=== PATIENT | female | born 1995 | race African-American/Black ===

== ENCOUNTER 2018-01-12 22:38 | Emergency (ER) | payer MEDICAID, SELFPAY ==
[2018-01-12] MEDS ORDERED: Sodium Chloride 0.9% 1,000 ML ONE (23:07)
[2018-01-12 23:31] LABS: Bilirubin Small (Negative); Blood, Urine Moderate (Negative); Glucose, Urine (Dipstick) Negative (Negative); Leukocyte Negative (Negative); Nitrite Negative (Negative); Protein, Urine (Dipstick) 30 mg/dL (Neg-Trace)
[2018-01-12 23:32] LABS: #Basophils 0.1 thou/uL (0.0-0.2); #Monocytes 0.8 thou/uL (0.11-0.59); #Neutrophils 6.5 thou/uL (1.40-6.50); %Basophils 0.9 % (0.0-1.0); %Eosinophils 0.2 % (0.0-10.0); %Lymphocytes 21.5 % (21.0-51.0); %Monocytes 8.3 % (0.0-10.0); %Neutrophils 69.1 % (42.0-75.0); Hemoglobin 13.2 g/dL (12.0-16.0); Mean Corpuscular HGB CONC 33.2 g/dL (32.0-36.0); Mean Corpuscular Hemoglobin 28.8 pg (27.0-31.0); Mean Corpuscular Volume 86.9 fl (81.0-99.0); Mean Platelet Volume 7.2 fL (7.4-10.4); Platelet Count 298 thou/uL (130-400); RBC Distribution Width 12.3 % (11.5-14.5); Red Blood Cell (RBC) Count 4.57 mill/uL (4.20-5.40); White Blood Cell (WBC) Count 9.5 thou/uL (4.8-10.8)
[2018-01-12 23:35] LABS: Clarity Hazy (Clear); Specific Gravity, Urine 1.035 (1.002-1.036)
[2018-01-12 23:36] LABS: Squamous Epithelial 0-3 HPF (0-3); Transitional Epithelial 0-3 HPF (0-3); WBC/HPF 0-3 HPF (0-3)
[2018-01-12 23:44] LABS: Anion Gap 14 mmol/L (10-20); BUN (Urea Nitrogen) 6 mg/dL (7.0-18.7); Calc. Creatinine Clearance 0 mL/min (70-130); Calcium 9.1 mg/dL (7.8-10.44); Carbon Dioxide 22 mmol/L (22-29); Chloride 104 mmol/L (98-107); Estimated GFR-MDRD Greater than 90; Glucose 91 mg/dL (70-105); Potassium 3.7 mmol/L (3.5-5.1); Sodium 136 mmol/L (136-145)
== END 2018-01-13 00:28 | disposition short-term general hospital (02) ==
LOC: NAV ERS 22:38
DX: O20.9 Hemorrhage in early pregnancy, unspecified (principal); Z87.891 Personal history of nicotine dependence; Z79.899 Other long term (current) drug therapy; Z3A.01 Less than 8 weeks gestation of pregnancy
CPT/HCPCS: 51701; 80048; 81003; 81015; 84702; 85025; 96360; A4353; J7050

== ENCOUNTER 2018-01-14 12:36 | Emergency (ER) | payer SELFPAY ==
[2018-01-14] MEDS ORDERED: Sodium Chloride 0.9% 1,000 ML ONE (12:52)
[2018-01-14] MEDS ORDERED: Promethazine HCl 25 MG/ML VIAL ONE (12:54)
== END 2018-01-14 14:05 | disposition home or self-care (01) ==
LOC: NAV ERS 12:36
DX: O21.9 Vomiting of pregnancy, unspecified (principal); Z87.891 Personal history of nicotine dependence; Z3A.01 Less than 8 weeks gestation of pregnancy
CPT/HCPCS: 96365; J2550; J7050

== ENCOUNTER 2018-04-23 13:08 | Outpatient (CLI) | payer OTHER ==
--- NOTE | 2018-04-23 15:46 | ULT ---
OB ULTRASOUND: 04/23/18 HISTORY: Positive . Evaluate size and dates. FINDINGS: There is a single intrauterine gestation in breech presentation. Cardiac doppler demonstrates h eart tones with a heart rate of 146 beats per minute. The placenta is located anteriorly withou t evidence of placenta previa. Subjectively, there is a normal amount of amniotic fluid. Amniotic flu id index is calculated at 11.09 cm, which is within normal limits. measurements: Biparietal diameter 4.94 cm 21 weeks Head circumference 18.88 cm 21 weeks, 1 day Abdominal circumference 14.69 cm 20 weeks Femur length 3.42 cm 20 weeks, 5 days The estimated gestational age by ultrasound is 20 weeks and 4 days with an JOLLY on 09/06/18. Gestationa l age by the last menstrual period of 21 weeks. The estimated weight by ultrasound was 352.56 grams (12 oz.). This represents 18.5 percentile f or weight. Four chambered heart is difficult to delineate, but there is suggestion of a four chambered heart. Th e visualized portions of the cerebellum, visualized portions of the spine, stomach, bilateral k idneys, urinary bladder, and three vessel cord demonstrate a normal sonographic appearance. Cord inse rtion is not well seen but does appear grossly within normal limits. Limited evaluation of the cord i nsertion is secondary to positioning. No definite anomalies are seen. IMPRESSION: 1. Single intrauterine gestation in breech presentation with heart tones documented. 2. Estimated gestational age by ultrasound is 20 weeks and 4 days with an JOLLY on 09/06/18. 3. Estimated weight by ultrasound is 353.56 grams (12 oz.). POS: [facility]
== END 2018-04-23 13:09 | disposition home or self-care (01) ==
LOC: NAV ULT 13:08
PROVIDERS: ATTEND Family Medicine
DX: O09.892 Supervision of other high risk pregnancies, second trimester (principal); Z3A.20 20 weeks gestation of pregnancy
CPT/HCPCS: 76805

== ENCOUNTER 2018-06-17 09:28 | Outpatient (CLI) | payer OTHER ==
--- NOTE | 2018-06-17 12:41 | ULT ---
OBSTETRIC SONOGRAM: History: evaluation follow up. Comparison: 04-23-18 FINDINGS: Multiple transabdominal sonographic views of the gravid uterus show a single intrauterine gestation i n cephalic presentation. Grade 0 placenta is anterior. Four-chamber heart now well visualized with he art motion at 143 beats/minute. No gross intracranial abnormalities. Amniotic fluid index is 13.4. Um bilical cord shows a normal insertion. Advanced age somewhat limits anatomic detail. Measurements are as follows: BPD 29 weeks 5 days HC 29 weeks 0 days AC 27 weeks 2 days FL 28 weeks 6 days Estimated weight 1181 grams (2 lbs. 10 oz). [place] percentile 16%. IMPRESSION: 1. Single viable intrauterine gestation. [place] percentile 16%. 2. Four chamber heart and umbilical cord insertion are now well visualized. POS: [facility]
== END 2018-06-17 09:29 | disposition home or self-care (01) ==
LOC: NAV ULT 09:28
PROVIDERS: ATTEND Family Medicine
DX: O09.893 Supervision of other high risk pregnancies, third trimester (principal)
CPT/HCPCS: 76816

== ENCOUNTER 2018-08-15 15:18 | Emergency (ER) | payer OTHER ==
[2018-08-15] MEDS ORDERED: Sodium Chloride 0.9% 1,000 ML ONE (15:54)
== END 2018-08-15 16:33 | disposition short-term general hospital (02) ==
LOC: NAV ERS 15:18
DX: O47.1 False labor at or after 37 completed weeks of gestation (principal); Z87.891 Personal history of nicotine dependence; Z3A.37 37 weeks gestation of pregnancy
CPT/HCPCS: 96360; J7050

== ENCOUNTER 2019-04-27 15:05 | Emergency (ER) | payer OTHER | END 2019-04-27 15:44 | disposition home or self-care (01) | LOC: NAV ERS 15:05 | DX: M79.604 Pain in right leg (principal); M79.605 Pain in left leg; F17.290 Nicotine dependence, other tobacco product, uncomplicated | CPT/HCPCS: 36416; 99281 ==

== ENCOUNTER 2019-11-02 18:39 | Emergency (ER) | payer SELFPAY ==
[2019-11-02 19:34] LABS: #Basophils 0.1 thou/uL (0.0-0.2); #Lymphocytes 1.8 thou/uL (1.20-3.40); #Neutrophils 7.4 thou/uL (1.40-6.50); %Basophils 0.8 % (0.0-1.0); %Eosinophils 0.1 % (0.0-10.0); %Lymphocytes 17.7 % (21.0-51.0); %Monocytes 9.4 % (0.0-10.0); Hemoglobin 13.2 g/dL (12.0-16.0); Mean Corpuscular HGB CONC 33.3 g/dL (32.0-36.0); Mean Corpuscular Hemoglobin 30.1 pg (27.0-31.0); Mean Corpuscular Volume 90.3 fL (78.0-98.0); Mean Platelet Volume 6.9 fL (7.4-10.4); Platelet Count 335 thou/uL (130-400); RBC Distribution Width 12.6 % (11.5-14.5); Red Blood Cell (RBC) Count 4.37 mill/uL (4.20-5.40); White Blood Cell (WBC) Count 10.3 thou/uL (4.8-10.8)
[2019-11-02 19:41] LABS: Anion Gap 18 mmol/L (10-20); BUN (Urea Nitrogen) 7 mg/dL (7.0-18.7); Calc. Creatinine Clearance 0 mL/min (70-130); Calcium 9.7 mg/dL (7.8-10.44); Carbon Dioxide 25 mmol/L (22-29); Chloride 99 mmol/L (98-107); Estimated GFR-MDRD Greater than 90; Glucose 78 mg/dL (70-105); Potassium 3.2 mmol/L (3.5-5.1); Sodium 139 mmol/L (136-145)
--- NOTE | 2019-11-02 20:13 | RAD ---
RIGHT ELBOW THREE VIEWS: 11/02/19 HISTORY: Right elbow pain. FINDINGS: All views are in partial flexion and are oblique. A true lateral and a true frontal view are not incl uded. There is elevation of the distal humeral fat pads. Radiocapitellar alignment is maintained. No fractu re planes are visible. No radiopaque foreign bodies. No aggressive osseous erosions. IMPRESSION: Fluid distention of the joint capsule. This could represent hemarthrosis in the setting of trauma and nonvisible fracture, effusion, or infection. No fracture planes are evident. If there is ongoing con cern for fracture, please consider immobilization and orthopedic follow-up. Otherwise, please correla te for other cause of effusion/inflammation. POS: [facility]
[2019-11-02] MEDS ORDERED: Lidocaine 1% (PF) 30 ML VIAL ONE (21:41)
[2019-11-02] MEDS ORDERED: cefTRIAXone\\ROCEPHIN 1 GM VIAL ONE (21:41)
== END 2019-11-02 22:00 | disposition short-term general hospital (02) ==
LOC: NAV ERS 18:39
DX: M25.521 Pain in right elbow (principal); K08.89 Other specified disorders of teeth and supporting structures; R79.82 Elevated C-reactive protein (CRP); F17.210 Nicotine dependence, cigarettes, uncomplicated
CPT/HCPCS: 36415; 80048; 85025; 86140; 96372; J0696; J2001

== ENCOUNTER 2021-12-10 17:32 | Emergency (ER) | payer OTHER, SELFPAY | END 2021-12-10 19:02 | disposition home or self-care (01) | LOC: NAV ERS 17:32 | DX: B08.1 Molluscum contagiosum (principal); F17.210 Nicotine dependence, cigarettes, uncomplicated | CPT/HCPCS: 99282 ==

== ENCOUNTER 2022-03-17 20:44 | Emergency (ER) | payer OTHER ==
[2022-03-17] MEDS ORDERED: Ibuprofen 200 MG TAB ONE (21:30)
[2022-03-17 21:40] LABS: Bilirubin Negative (Negative); Blood, Urine Negative (Negative); Clarity Clear (Clear); Glucose, Urine (Dipstick) Negative (Negative); Ketone, Urine 40 mg/dL (Negative); Leukocyte Negative (Negative); Nitrite Negative (Negative); Protein, Urine (Dipstick) 100 mg/dL (Neg-Trace); pH, Urine 6.5 (5.0-9.0)
[2022-03-17 21:43] LABS: Pregnancy Test - Urine (BHCG) Negative (Negative)
[2022-03-17 21:44] LABS: Pregu Control Background? CLEAR/WHITE (CLR/WHITE); Pregu Control Bar Appear? YES (CONTROL BAR)
[2022-03-17 21:47] LABS: Bacteria/HPF None Seen HPF (None Seen); RBC/HPF 0-3 HPF (0-3); Squamous Epithelial 0-3 HPF (0-3); WBC/HPF 0-3 HPF (0-3)
== END 2022-03-17 22:05 | disposition home or self-care (01) ==
LOC: NAV ERS 20:44
DX: U07.1 COVID-19 (principal); F17.210 Nicotine dependence, cigarettes, uncomplicated
CPT/HCPCS: 81003; 81015; 81025; 99283; U0003; U0005

== ENCOUNTER 2022-05-29 17:56 | Emergency (ER) | payer OTHER ==
[2022-05-29 18:32] LABS: Bilirubin Negative (Negative); Blood, Urine Negative (Negative); Clarity SL HAZY (Clear); Glucose, Urine (Dipstick) Negative (Negative); Ketone, Urine Negative (Negative); Leukocyte Negative (Negative); Nitrite Negative (Negative); Protein, Urine (Dipstick) Negative (Neg-Trace); Urobilinogen 0.2 mg/dL (Less than 2)
[2022-05-29 18:33] LABS: Specific Gravity, Urine 1.026 (1.002-1.036)
[2022-05-29] MEDS ORDERED: Azithromycin 250 MG TAB ONE (19:29)
[2022-05-29] MEDS ORDERED: cefTRIAXone\\ROCEPHIN 500 MG VIAL ONE (19:29)
[2022-05-29 19:41] LABS: Wet Prep Clue Cells Clue Cells PRESENT (None Seen); Wet Prep Trichomonas Trichomonas Absent (None Seen)
[2022-05-29 20:04] LABS: Pregnancy Test - Urine (BHCG) Negative (Negative); Pregu Control Background? CLEAR/WHITE (CLR/WHITE); Pregu Control Bar Appear? YES (CONTROL BAR)
[2022-05-29 20:05] LABS: Specific Gravity 1.026 (1.002-1.036)
[2022-05-29] MEDS ORDERED: metroNIDAZOLE 500 MG TAB ONE (20:11)
[2022-05-30 21:10] LABS: Chlamydia by PCR Not Detected (NotDetected); GC by PCR Not Detected (NotDetected)
== END 2022-05-29 20:18 | disposition home or self-care (01) ==
LOC: NAV ERS 17:56
DX: N76.0 Acute vaginitis (principal); B96.89 Other specified bacterial agents as the cause of diseases classified elsewhere; F17.290 Nicotine dependence, other tobacco product, uncomplicated
CPT/HCPCS: 81003; 81025; 87210; 87480; 87491; 87510; 87591; 87660; 96372; 99283; J0696